=== PATIENT | male | born 1990 | race Two or more races ===

== ENCOUNTER 2016-12-14 19:57 | Emergency (ER) | payer OTHER ==
[~2016-12-14] VITALS: Ht 180.3 cm; Wt 117.9 kg
[2016-12-14] MEDS ORDERED: TETRACAINE HCL 0.5% OPHT DROP 2 ML BOTTLE OP ONE (20:15)
[2016-12-14] MEDS ORDERED: FLUORESCEIN SODIUM 1 MG STRIP OP ONE (20:15)
--- NOTE | 2016-12-14 20:17 | NUR ---
CALLED POISON CONTROL SPOKE WITH MAYKEL (PLUG AND MOLD FINISHER # [id number]). RECOMMENDED EYE IRRIGATION [id number] ADN D/C'ED 15MINS AFTER TX IS NO SYMTOMS AND FOLLOW UP WITH OPTHOMOLOGIST
[2016-12-14] MEDS ORDERED: TETRACAINE HCL 0.5% OPHT DROP 2 ML BOTTLE ONE (20:37)
[2016-12-14] MEDS ORDERED: FLUORESCEIN SODIUM 1 MG STRIP ONE (20:37)
--- NOTE | 2016-12-14 20:40 | NUR ---
PLACED STEPHANIE'S LENS ON LEFT EYE ORDERED
[2016-12-14 21:09] VITALS: BP 143/77
--- NOTE | 2016-12-14 21:09 | NUR ---
Patient discharged to home in stable conditon. Written and verbal after care instructions given. Patient verbalizes understanding of instructions. PATIENT LEFT WITH STABLE GAIT.
[2016-12-14] MEDS ORDERED: IV NORMAL SALINE 1000 ML BAG IV ONE (21:15)
== END 2016-12-14 21:10 | disposition home or self-care (01) ==
LOC: ER 19:57
DX: H10.212 Acute toxic conjunctivitis, left eye (principal); X58.XXXA Exposure to other specified factors, initial encounter; Y93.89 Activity, other specified; Y92.9 Unspecified place or not applicable; Y99.9 Unspecified external cause status
CPT/HCPCS: A4663; J7030